=== PATIENT | female | born 1990 | race African-American/Black ===

== ENCOUNTER 2021-12-27 14:54 | Emergency (ER) | payer OTHER ==
[~2021-12-27] VITALS: Ht 167.6 cm; Wt 59.1 kg
[2021-12-27] MEDS ORDERED: AMIT10TA7 PO (15:09)
[2021-12-27] MEDS ORDERED: ONDANSETRON 4MG ORAL DISINTEGRATING TAB PO ONE (19:25)
[2021-12-27] MEDS ORDERED: KETOROLAC TROMETHAMINE 10 MG TAB PO ONE (19:25)
[2021-12-27] MEDS ORDERED: ONDA4TAB6 PO (19:53)
[2021-12-27 20:04] VITALS: BP 113/62
== END 2021-12-27 20:06 | disposition home or self-care (01) ==
LOC: M ED 14:54
DX: G43.909 Migraine, unspecified, not intractable, without status migrainosus (principal); Z88.0 Allergy status to penicillin

== ENCOUNTER 2022-01-18 16:33 | Emergency (ER) | payer OTHER ==
[~2022-01-18] VITALS: Ht 167.6 cm; Wt 58.6 kg
[2022-01-18 16:33] VITALS: BP 144/71
[~2022-01-18 16:33] MED LIST: AMIT10TA7 PO; ONDA4TAB6 PO
[2022-01-18] MEDS ORDERED: ONDA4TAB6 PO (17:32)
[2022-01-18] MEDS ORDERED: ONDANSETRON 4MG ORAL DISINTEGRATING TAB PO ONE (17:35)
== END 2022-01-18 18:04 | disposition home or self-care (01) ==
LOC: M ED 16:33
DX: J06.9 Acute upper respiratory infection, unspecified (principal); Z20.822 Contact with and (suspected) exposure to COVID-19; Z88.0 Allergy status to penicillin

== ENCOUNTER 2022-04-16 09:46 | Emergency (ER) | payer OTHER ==
[~2022-04-16] VITALS: Ht 170.2 cm; Wt 60.3 kg
[2022-04-16] MEDS ORDERED: PREN1TAB11 PO (10:01)
[2022-04-16 10:32] LABS: BASO % 0.3 % (0.0-1.0); EOS % 0.7 % (0.0-3.0); HEMATOCRIT 37.2 % (36.0-47.0); HEMOGLOBIN 13.3 g/dl (12.0-15.5); LYMPH # 2.4 10^3/uL (1.5-5.0); LYMPH % 40.5 % (24.0-44.0); MEAN CORPUSCULAR HEMOGLOBIN 30.5 pg (27.0-33.0); MEAN CORPUSCULAR HGB CONC 35.8 g/dl (32.0-36.5); MEAN CORPUSCULAR VOLUME 85.3 fl (80.0-96.0); MONO # 0.5 10^3/uL (0.0-0.8); MONO % 8.3 % (2.0-8.0); PLATELET COUNT, AUTOMATED 312 10^3/uL (150-450); RED BLOOD COUNT 4.36 10^6/uL (4.00-5.40)
[2022-04-16 10:56] LABS: HCG, SERUM QUANTITATIVE 129.9 MIU/ML (<4.2)
[2022-04-16 10:57] LABS: BLOOD UREA NITROGEN 8 MG/DL (9-23); CALCIUM LEVEL 9.2 MG/DL (8.5-10.1); CARBON DIOXIDE LEVEL 27 MMOL/L (20-31); CHLORIDE LEVEL 106 MMOL/L (98-107); CREATININE FOR GFR 0.68 MG/DL (0.55-1.30); GLOMERULAR FILTRATION RATE > 60.0 (>60); GLUCOSE, FASTING 102 MG/DL (60-100); POTASSIUM SERUM 4.1 MMOL/L (3.5-5.1); SODIUM LEVEL 139 MMOL/L (136-145)
[2022-04-16 14:09] VITALS: BP 121/74
== END 2022-04-16 14:15 | disposition home or self-care (01) ==
LOC: M ED 09:46
DX: O20.0 Threatened abortion (principal); Z87.42 Personal history of other diseases of the female genital tract; Z87.59 Personal history of other complications of pregnancy, childbirth and the puerperium; Z88.0 Allergy status to penicillin; Z3A.01 Less than 8 weeks gestation of pregnancy; Z79.810 Long term (current) use of selective estrogen receptor modulators (SERMs)

== ENCOUNTER → 2022-04-18 | Outpatient (CLI) | payer OTHER ==
[~2022-04-18] MED LIST changes: +PREN1TAB11 PO
== END ==
LOC: M LAB 12:31
PROVIDERS: ATTEND Physician Assistant
DX: O20.0 Threatened abortion (principal); Z3A.00 Weeks of gestation of pregnancy not specified

== ENCOUNTER 2022-11-13 11:52 | Emergency (ER) | payer OTHER ==
[~2022-11-13] VITALS: Ht 167.6 cm; Wt 69.5 kg
[2022-11-13 13:01] LABS: BASO % 0.1 % (0.0-1.0); EOS % 0.3 % (0.0-3.0); HEMATOCRIT 30.5 % (36.0-47.0); HEMOGLOBIN 11.1 g/dl (12.0-15.5); LYMPH # 1.9 10^3/uL (1.5-5.0); LYMPH % 24.1 % (24.0-44.0); MEAN CORPUSCULAR HEMOGLOBIN 30.5 pg (27.0-33.0); MEAN CORPUSCULAR HGB CONC 36.4 g/dl (32.0-36.5); MEAN CORPUSCULAR VOLUME 83.8 fl (80.0-96.0); MONO # 0.4 10^3/uL (0.0-0.8); MONO % 5.5 % (2.0-8.0); NEUTROPHILS # 5.5 10^3/uL (1.5-8.5); NEUTROPHILS % 69.6 % (36.0-66.0); PLATELET COUNT, AUTOMATED 233 10^3/uL (150-450); RED BLOOD COUNT 3.64 10^6/uL (4.00-5.40); WHITE BLOOD COUNT 7.9 10^3/uL (4.0-10.0)
[2022-11-13 13:40] LABS: BLOOD UREA NITROGEN 7 MG/DL (9-23); CALCIUM LEVEL 9.3 MG/DL (8.5-10.1); CARBON DIOXIDE LEVEL 23 MMOL/L (20-31); CHLORIDE LEVEL 106 MMOL/L (98-107); CREATININE FOR GFR 0.44 MG/DL (0.55-1.30); GLOMERULAR FILTRATION RATE > 60.0 (>60); GLUCOSE, FASTING 99 MG/DL (60-100); POTASSIUM SERUM 3.9 MMOL/L (3.5-5.1); SODIUM LEVEL 137 MMOL/L (136-145)
[2022-11-13 13:43] LABS: THYROID STIMULATING HORMONE 0.217 uIU/ML (0.55-4.78)
[2022-11-13] MEDS ORDERED: NS 1,000 ML IV ONE (13:55)
[2022-11-13 14:23] LABS: FREE T4 0.91 NG/DL (0.89-1.76)
[2022-11-13 15:40] VITALS: BP 120/60; TEMP 97.1; O2SAT 98
== END 2022-11-13 15:43 | disposition home or self-care (01) ==
LOC: M ED 11:52
DX: O99.891 Other specified diseases and conditions complicating pregnancy (principal); R55 Syncope and collapse; O99.012 Anemia complicating pregnancy, second trimester; Z3A.22 22 weeks gestation of pregnancy; Z88.0 Allergy status to penicillin; Z79.899 Other long term (current) drug therapy

== ENCOUNTER 2023-02-14 11:34 | Outpatient (CLI) | payer OTHER ==
[~2023-02-14] VITALS: Ht 167.6 cm; Wt 74.6 kg
[2023-02-14 11:47] VITALS: BP 135/75
[2023-02-14] MEDS ORDERED: ACET-907 PO (11:54)
[2023-02-14] MEDS ORDERED: HOME MED LIST COMPLETE! XX SCH (11:55)
[2023-02-14] MEDS ORDERED: FLUCONAZOLE 50MG TABLET PO ONE (13:10)
[2023-02-14 13:35] LABS: APPEARANCE, URINE HAZY (CLEAR); BACTERIA, URINE AUTO NEGATIVE (NEGATIVE); BILIRUBIN, URINE AUTO NEGATIVE (NEGATIVE); BLOOD, URINE BLOOD NEGATIVE (NEGATIVE); COLOR, URINE YELLOW (YELLOW); GLUCOSE, URINE (UA) AUTO NEGATIVE (NEGATIVE); KETONE, URINE AUTO NEGATIVE (NEGATIVE); LEUKOCYTE ESTERASE, URINE AUTO NEGATIVE (NEGATIVE); MUCUS, URINE SMALL (NEGATIVE); NITRITE, URINE AUTO NEGATIVE (NEGATIVE); PROTEIN, URINE AUTO 1+ mg/dL (NEGATIVE); RBC, URINE AUTO 0 /HPF (0-3); SPECIFIC GRAVITY URINE AUTO 1.023 (1.002-1.035); SQUAMOUS EPITHELIAL CELL UR AU 1 /HPF (0-6); WBC, URINE AUTO 2 /HPF (0-3)
== END 2023-02-14 13:30 ==
LOC: M LDO 11:34
PROVIDERS: ATTEND Advanced Practice Midwife
DX: O23.593 Infection of other part of genital tract in pregnancy, third trimester (principal); B37.9 Candidiasis, unspecified; O99.283 Endocrine, nutritional and metabolic diseases complicating pregnancy, third trimester; E86.0 Dehydration; O21.8 Other vomiting complicating pregnancy; O26.893 Other specified pregnancy related conditions, third trimester; M54.50 Low back pain, unspecified; Z3A.39 39 weeks gestation of pregnancy; R25.2 Cramp and spasm; Z88.0 Allergy status to penicillin
CPT/HCPCS: 59025; 76815; 81001; 87081; 87086; G0463

== ENCOUNTER 2023-02-15 06:35 | Outpatient (CLI) | payer OTHER ==
[~2023-02-15] VITALS: Ht 167.6 cm; Wt 74.5 kg
[~2023-02-15 06:35] MED LIST changes: +ACET-907 PO
[2023-02-15] MEDS ORDERED: HOME MED LIST COMPLETE! XX SCH (07:05)
[2023-02-15 07:07] VITALS: BP 117/66
[2023-02-15 10:00] VITALS: BP 127/66
== END 2023-02-15 12:16 | disposition home or self-care (01) ==
LOC: M LDO 06:35
PROVIDERS: ATTEND Obstetrics & Gynecology
DX: O47.03 False labor before 37 completed weeks of gestation, third trimester (principal); Z3A.36 36 weeks gestation of pregnancy; Z88.0 Allergy status to penicillin
CPT/HCPCS: 59025; 76815; 76820; G0463

== ENCOUNTER 2023-02-19 23:57 | Outpatient (CLI) | payer OTHER ==
[~2023-02-19] VITALS: Ht 167.6 cm; Wt 76.8 kg
[2023-02-20 00:12] VITALS: BP 133/74
== END 2023-02-20 00:58 | disposition home or self-care (01) ==
LOC: M LDO 23:57
PROVIDERS: ATTEND Obstetrics & Gynecology
DX: O47.03 False labor before 37 completed weeks of gestation, third trimester (principal); Z3A.36 36 weeks gestation of pregnancy; Z88.0 Allergy status to penicillin
CPT/HCPCS: 59025; G0463

== ENCOUNTER 2023-02-23 08:58 | Inpatient (IN) | payer OTHER ==
[2023-02-23] VITALS (21 sets, daily range): BP systolic 106–174; BP diastolic 58–90; O2SAT 97–100
[~2023-02-23] VITALS: Ht 167.6 cm; Wt 76.0 kg
[2023-02-23] MEDS: PRENATAL VITAMINS CHEWABLE TABLET PO SCH (09:00)
[2023-02-23] MEDS ORDERED: LACTATED RINGER'S 1000 ML IV STA (09:53)
[2023-02-23] MEDS ORDERED: TRANEXAMIC ACID INJection 1,000 MG in NS 100 ML IV PRN (09:55)
[2023-02-23] MEDS ORDERED: LIDOCAINE 1% MDV 20ML VIAL INFIL PRN (09:55)
[2023-02-23] MEDS ORDERED: METHYLERGONOVINE MALEATE 0.2MG/ML 1ML VIAL IM PRN ×2 (09:55→12:45)
[2023-02-23] MEDS ORDERED: OXYTOCIN DRIP 30 UNITS in IV 1 EA IV PRN ×4 (09:55)
[2023-02-23] MEDS ORDERED: LR 1,000 ML IV SCH ×2 (10:15→12:45)
[2023-02-23 10:19] LABS: HEMATOCRIT 33.7 % (36.0-47.0); HEMOGLOBIN 12.3 g/dl (12.0-15.5); MEAN CORPUSCULAR HEMOGLOBIN 30.2 pg (27.0-33.0); MEAN CORPUSCULAR HGB CONC 36.5 g/dl (32.0-36.5); MEAN CORPUSCULAR VOLUME 82.8 fl (80.0-96.0); PLATELET COUNT, AUTOMATED 204 10^3/uL (150-450); RED BLOOD COUNT 4.07 10^6/uL (4.00-5.40); WHITE BLOOD COUNT 9.6 10^3/uL (4.0-10.0)
[2023-02-23] MEDS ORDERED: ONDANSETRON 4MG 2ML VIAL IV PRN ×2 (10:45→12:45)
[2023-02-23] MEDS ORDERED: FENTANYL/ROPIVACAINE/NACL BAG 100 ML EPIDURAL SCH (10:45)
[2023-02-23] MEDS ORDERED: EPIDURAL/PCA KEYS XX PRN (10:45)
[2023-02-23] MEDS ORDERED: diphenhydrAMINE 50MG/ML VIAL IV PRN (10:45)
[2023-02-23] MEDS ORDERED: LR 500 ML IV PRN (10:45)
[2023-02-23] MEDS ORDERED: ePHEDrine SULFATE 25 MG/5 ML(5MG/ML) SYRINGE IVP PRN (10:45)
[2023-02-23] MEDS ORDERED: NALOXONE INJ 0.4MG/1ML VIAL IV PRN (10:45)
[2023-02-23] MEDS ORDERED: DIBUCAINE 1% OINTMENT 30GM TOP PRN (12:45)
[2023-02-23] MEDS ORDERED: RHOGAM 300MCG (1500IU) INJ IM SCH (12:45)
[2023-02-23] MEDS ORDERED: DOCUSATE SODIUM 100MG CAPSULE PO PRN (12:45)
[2023-02-23] MEDS ORDERED: OXYTOCIN DRIP 30 UNITS in IV 1 EA IV SCH (12:45)
[2023-02-23] MEDS ORDERED: METOCLOPRAMIDE INJ 10MG/2ML VIAL IV PRN (12:45)
[2023-02-23] MEDS ORDERED: IBUPROFEN 800 MG TAB PO PRN (12:45)
[2023-02-23] MEDS ORDERED: IBUPROFEN 600MG TAB PO PRN (12:45)
[2023-02-23] MEDS ORDERED: ACETAMINOPHEN TAB 650MG DOSE (2X325MG) PO PRN (12:45)
[2023-02-23 12:48] LABS: CORD GAS ABE A -6.3; CORD GAS HCO3 A 22.4 MMOL/L; CORD GAS O2 SAT A 60.3 %; CORD GAS PCO2 A 56.1 mmHg; CORD GAS PH A 7.22 UNITS; CORD GAS PO2 A 41.4 mmHg; CORD GAS SBC A 18.4 MMOL/L; CORD GAS TCO2 A 24.2 MMOL/L
[2023-02-23 12:49] LABS: CORD GAS ABE V -3.1; CORD GAS HCO3 V 22.6 MMOL/L; CORD GAS O2 SAT V 83.1 %; CORD GAS PCO2 V 42.4 mmHg; CORD GAS PH V 7.344 UNITS; CORD GAS PO2 V 37.1 mmHg; CORD GAS SBC V 21.5 MMOL/L; CORD GAS TCO2 V 23.9 MMOL/L
[2023-02-24] MEDS: ACETAMINOPHEN 500 MG TAB PO PRN ×2 (00:41→11:23)
[2023-02-24 06:00] VITALS: BP 119/58; O2SAT 98
[2023-02-24 07:31] LABS: MEAN CORPUSCULAR HEMOGLOBIN 30.7 pg (27.0-33.0); MEAN CORPUSCULAR HGB CONC 36.1 g/dl (32.0-36.5); MEAN CORPUSCULAR VOLUME 85.1 fl (80.0-96.0); PLATELET COUNT, AUTOMATED 185 10^3/uL (150-450); RED BLOOD COUNT 3.29 10^6/uL (4.00-5.40); WHITE BLOOD COUNT 11.9 10^3/uL (4.0-10.0)
[2023-02-24 07:34] LABS: HEMOGLOBIN 10.1 g/dl (12.0-15.5)
[2023-02-24] MEDS ORDERED: ACET1TAB55 PO (08:02)
[2023-02-24] MEDS ORDERED: COLA100C5 PO (08:02)
[2023-02-24] MEDS ORDERED: IBUP-1022 PO (08:02)
[2023-02-24] MEDS: PRENATAL VITAMINS CHEWABLE TABLET PO SCH (11:20)
[2023-02-25] MEDS ORDERED: MEASLES,MUMPS,RUBELLA VACCINE INJ (MMR-II) SC.IMMUN ONE (09:00)
== END 2023-02-24 14:15 | disposition home or self-care (01) | DRG 807 ==
LOC: M LDO 08:58 → M LDI 09:41 → M OBS 15:15
PROVIDERS: ADMIT Obstetrics & Gynecology; ATTEND Obstetrics & Gynecology
PROC: 10E0XZZ Delivery of Products of Conception, External Approach (ICD-10-PCS; principal; 2023-02-23)
DX: O80 Encounter for full-term uncomplicated delivery (principal); Z37.0 Single live birth; Z3A.37 37 weeks gestation of pregnancy; Z88.0 Allergy status to penicillin

== ENCOUNTER 2024-03-14 08:48 | Emergency (ER) | payer OTHER, SELFPAY ==
[~2024-03-14] VITALS: Ht 167.6 cm; Wt 59.2 kg
[~2024-03-14 08:48] MED LIST changes: +ACET1TAB55 PO; +COLA100C5 PO; +IBUP-1022 PO; +ONDA-282 PO; -ONDA4TAB6 PO
[2024-03-14 11:36] LABS: BASO % 0.4 % (0.0-1.0); EOS % 0.4 % (0.0-3.0); HEMATOCRIT 36.4 % (36.0-47.0); HEMOGLOBIN 13.2 g/dl (12.0-15.5); LYMPH # 4.5 10^3/uL (1.5-5.0); LYMPH % 64.3 % (24.0-44.0); MEAN CORPUSCULAR HEMOGLOBIN 29.5 pg (27.0-33.0); MEAN CORPUSCULAR HGB CONC 36.3 g/dl (32.0-36.5); MEAN CORPUSCULAR VOLUME 81.3 fl (80.0-96.0); MONO # 0.4 10^3/uL (0.0-0.8); MONO % 5.9 % (2.0-8.0); PLATELET COUNT, AUTOMATED 283 10^3/uL (150-450); RED BLOOD COUNT 4.48 10^6/uL (4.00-5.40)
[2024-03-14 11:58] LABS: HCG, SERUM QUANTITATIVE < 2.6 MIU/ML (<4.2)
[2024-03-14 12:00] LABS: BLOOD UREA NITROGEN 14 MG/DL (9-23); CALCIUM LEVEL 9.4 MG/DL (8.5-10.1); CARBON DIOXIDE LEVEL 24 MMOL/L (20-31); CHLORIDE LEVEL 108 MMOL/L (98-107); CREATININE FOR GFR 0.65 MG/DL (0.55-1.30); GLOMERULAR FILTRATION RATE > 60.0 (>60); GLUCOSE, FASTING 82 MG/DL (60-100); POTASSIUM SERUM 4.2 MMOL/L (3.5-5.1); SODIUM LEVEL 139 MMOL/L (136-145)
[2024-03-14 13:37] VITALS: BP 130/72; TEMP 98.4; O2SAT 100
== END 2024-03-14 14:15 | disposition home or self-care (01) ==
LOC: M ED 08:48
DX: N93.9 Abnormal uterine and vaginal bleeding, unspecified (principal); Z88.0 Allergy status to penicillin